=== PATIENT | female | born 1950 | race Caucasian/White ===

== ENCOUNTER 2020-04-30 17:32 | Emergency (ER) | payer OTHER ==
--- NOTE | 2020-04-30 17:37 | PDOC ---
Rapid Medical Evaluation Time Seen by Provider: 04/30/20 17:35 Medical Evaluation: 04/30/20 17:35 I have performed a brief in-person evaluation of this patient. CC: urinary retention. Had bladder scan performed prior to arrival ~700cc PE: mild distention to suprapubis. Orders: urine Patient will proceed to ED for further evaluation. 04/30/20 17:36 Discharge Disposition - Diagnosis Urinary retention - Referrals - Patient Instructions - Post Discharge Activity
[2020-04-30 17:53] VITALS: BP 157/91; PULSE 78; TEMP 98.2; BMI 26.6
[2020-04-30] MEDS ORDERED: SODIUM CHLORIDE 1,000 ML IV STA (19:00)
--- NOTE | 2020-04-30 19:13 | PDOC ---
History of Present Illness - General Chief Complaint: Urinary Problem Stated Complaint: URINARY PROBLEM Time Seen by Provider: 04/30/20 17:35 Past History - Medical History Allergies/Adverse Reactions: Allergies Allergy/AdvReac Type Severity Reaction Status Date / Time No Known Allergies Allergy Unverified 04/30/20 17:53 Home Medications: Ambulatory Orders Atorvastatin Ca [Lipitor] 40 mg PO HS 04/30/20 Bupropion HCl [Wellbutrin -] 100 mg PO DAILY 04/30/20 Escitalopram Oxalate [Lexapro -] 0 mg PO DAILY 04/30/20 Gabapentin 100 mg PO BID 04/30/20 Hydrochlorothiazide [Hctz -] 25 mg PO DAILY 04/30/20 Levothyroxine [Synthroid -] 25 mcg PO DAILY 04/30/20 Losartan Potassium [Cozaar -] 50 mg PO DAILY 04/30/20 - Psycho-Social/Smoking History Number of Cigarettes Smoked Daily: 5 - Substance Abuse Hx (Audit-C & DAST Scrn) Score: In Men: 4 or > Positive; In Women: 3 or > Positive: 0 Screen Result (Pos requires Nsg. Audit-10AR): Negative Score: Yes response is considered Positive: 0 Screen Result (Positive result requires Nsg. DAST-10): Negative ED Treatment Course - LABORATORY CBC & Chemistry Diagram: 04/30/20 19:24 04/30/20 19:24 Medical Decision Making - Medical Decision Making 69-year-old female with past medical history of shrugging syndrome presented to the emergency department for urinary retention since this morning. Patient stated that she has been having progressive urinary retention over the last couple of weeks, she was seen by her primary care doctor, who had ordered a bladder ultrasound today. She reported that she drink a lot of water in preparation for that ultrasound, and then afterwards was unable to urinate. She reported she had 700 mL of urine in her bladder. She denied fever, chills, nausea, vomiting, ROS General: denied fever, chills, generalized weakness. HEENT: denied sore throat, rhinorrhea, ear pain. Cardiovascular: denied chest pain, palpitations, syncope, diaphoresis. Respiratory: denied shortness of breath, cough, sputum production, hemoptysis. Gastrointestinal: admitted to abdominal pain, urinary retention. denied nausea, vomiting, diarrhea, constipation, blood in stool. Genitourinary: denied dysuria, increased urinary frequency, hematuria, urinary incontinence, flank pain. Back: denied back pain. Musculoskeletal: denied joint pain, muscle pain, joint swelling. Neurological: denied headache, dizziness, numbness, tingling, weakness. Integumentary: denied rash, laceration, abrasion. Hematologic/Lymphatic: denied bruising or bleeding. PE Constitutional: Well-nourished, Well-developed, appearing stated age. HEENT: head is normocephalic, atraumatic. EOMI. PERRLA. Neck: supple. Full ROM. Cardiovascular: regular heart rhythm. Normal S1 and S2. no murmurs. no pericardial friction rub. Respiratory: clear to auscultation bilaterally. no crackles, rhonchi or wheezing. no stridor. Gastrointestinal: soft, flat, distended. suprapubic tenderness. normal bowel sounds. no rebound, guarding, or masses. no CVA tenderness bilaterally. Extremities: peripheral pulses intact and equal. no lower extremity edema noted. Neurological: CN 2-12 grossly intact. moves all four extremities. Psych: awake, alert, oriented x3. follows commands. answers questions appropriately. Urinary retention likely 2/2 pharmacological side effect from many immunological drugs. Will give Urological follow up to rule out other sources. 04/30/20 20:17 CBC WBC 8.1 K/mm3 (4.0-10.0) 04/30/20 19:24 RBC 4.14 M/mm3 (3.60-5.2) 04/30/20 19:24 Hgb 13.1 GM/dL (10.7-15.3) 04/30/20 19:24 Hct 38.3 % (32.4-45.2) 04/30/20 19:24 MCV 92.5 fl (80-96) 04/30/20 19:24 MCH 31.7 pg (25.7-33.7) 04/30/20 19:24 MCHC 34.3 g/dl (32.0-36.0) 04/30/20 19:24 RDW 12.7 % (11.6-15.6) 04/30/20 19:24 Plt Count 290 K/MM3 (134-434) 04/30/20 19:24 MPV 7.4 fl (7.5-11.1) L 04/30/20 19:24 Absolute Neuts (auto) 4.7 K/mm3 (1.5-8.0) 04/30/20 19:24 Neutrophils % 58.2 % (42.8-82.8) 04/30/20 19:24 Lymphocytes % 32.7 % (8-40) 04/30/20 19:24 Monocytes % 5.9 % (3.8-10.2) 04/30/20 19:24 Eosinophils % 2.2 % (0-4.5) 04/30/20 19:24 Basophils % 1.0 % (0-2.0) 04/30/20 19:24 Nucleated RBC % 0 % (0-0) 04/30/20 19:24 CMP Sodium 142 mmol/L (136-145) 04/30/20 19:24 Potassium 4.3 mmol/L (3.5-5.1) 04/30/20 19:24 Chloride 106 mmol/L (98-107) 04/30/20 19:24 Carbon Dioxide 29 mmol/L (21-32) 04/30/20 19:24 Anion Gap 7 MMOL/L (8-16) L 04/30/20 19:24 BUN 15.5 mg/dL (7-18) 04/30/20 19:24 Creatinine 0.9 mg/dL (0.55-1.3) 04/30/20 19:24 Est GFR (CKD-EPI)AfAm 76.14 04/30/20 19:24 Est GFR (CKD-EPI)NonAf 65.70 04/30/20 19:24 Random Glucose 79 mg/dL (74-106) 04/30/20 19:24 Calcium 9.1 mg/dL (8.5-10.1) 04/30/20 19:24 Phosphorus 3.1 mg/dL (2.5-4.9) 04/30/20 19:24 Magnesium 2.1 mg/dL (1.8-2.4) 04/30/20 19:24 Total Bilirubin 0.3 mg/dL (0.2-1) 04/30/20 19:24 AST 23 U/L (15-37) 04/30/20 19:24 ALT 27 U/L (13-61) 04/30/20 19:24 Alkaline Phosphatase 93 U/L (45-117) 04/30/20 19:24 Total Protein 6.7 g/dl (6.4-8.2) 04/30/20 19:24 Albumin 3.6 g/dl (3.4-5.0) 04/30/20 19:24 Urine Test Results Urine Color Yellow 04/30/20 19:24 Urine Appearance Clear 04/30/20 19:24 Urine pH 6.0 (5.0-8.0) 04/30/20 19:24 Ur Specific [place] 1.009 (1.010-1.035) L 04/30/20 19:24 Urine Protein Negative (NEGATIVE) 04/30/20 19:24 Urine Glucose (UA) Negative (NEGATIVE) 04/30/20 19:24 Urine Ketones Negative (NEGATIVE) 04/30/20 19:24 Urine Blood Negative (NEGATIVE) 04/30/20 19:24 Urine Nitrite Negative (NEGATIVE) 04/30/20 19:24 Urine Bilirubin Negative (NEGATIVE) 04/30/20 19:24 Ur Leukocyte Esterase Negative (NEGATIVE) 04/30/20 19:24 No leukocytosis. No anemia. No NOLAN. No electrolyte abnormalities. No transaminitis. No UTI. No proteinuria. Pt stable for discharge. Will give urological follow up. 04/30/20 20:38 Dr. Li called back after DC, will see her this week. Message left on home voicemail. Discharge - Discharge Information Problems reviewed: Yes Clinical Impression/Diagnosis: Urinary retention, Status post insertion of Dorman catheter Condition: Improved Disposition: HOME - Admission No - Follow up/Referral Referrals: Alondra Gasca MD [Primary Care Provider] - Alejandro Burk MD [Staff Physician] - Dennis Roy MD [Staff Physician] - - Patient Discharge Instructions Patient Printed Discharge Instructions: How to Care for Your Dorman Catheter -- Female, DI for Urinary Retention in Women Additional Instructions: Follow up with a urologist promptly. Your care is not complete until you follow up. They will remove your dorman catheter. Drink water to keep hydrated. Take Tylenol over the counter for pain. Take as advised on label. Return to the ER for fever, chills, nausea, vomiting, chest pain, lightheadedness, shortness of breath, or any other new, worsening or concerning symptoms. - Post Discharge Activity Work/Back to School Note: Back to Work
--- NOTE | 2020-04-30 19:29 | PDOC ---
Attending Attestation - Resident Resident Name: Catina Schilling - ED Attending Attestation I have performed the following: I have examined & evaluated the patient, The case was reviewed & discussed with the resident, I agree w/resident's findings & plan - HPI HPI: 04/30/20 20:00 see resident hpi - Physicial Exam PE: 04/30/20 20:00 see resident exam - Medical Decision Making 04/30/20 20:00 69-year-old female with urinary retention sent from primary care 700 cc of urine on bladder scan Fernandez placed with immediate release of clear urine in the emergency department, now totaling 1300 cc Plan for basic labs and DC with prompt urological follow-up Discharge - Discharge Information Problems reviewed: Yes Clinical Impression/Diagnosis: Urinary retention - Follow up/Referral Referrals: Alondra Gasca MD [Primary Care Provider] - - Patient Discharge Instructions - Post Discharge Activity
[2020-04-30 19:37] LABS: EOS % 2.2 % (0-4.5); HEMATOCRIT 38.3 % (32.4-45.2); HEMOGLOBIN 13.1 GM/dL (10.7-15.3); LYMPH % 32.7 % (8-40); MCH 31.7 pg (25.7-33.7); MCHC 34.3 g/dl (32.0-36.0); MEAN CELL VOLUME 92.5 fl (80-96); MEAN PLT VOLUME 7.4 fl (7.5-11.1); MONO % 5.9 % (3.8-10.2); NEUT % 58.2 % (42.8-82.8); PLATELET COUNT 290 K/MM3 (134-434); RBC 4.14 M/mm3 (3.60-5.2); RDW 12.7 % (11.6-15.6); WHITE BLOOD COUNT 8.1 K/mm3 (4.0-10.0)
[2020-04-30 19:40] LABS: URINE APPEARANCE CLEAR; URINE BILIRUBIN NEGATIVE (NEGATIVE); URINE COLOR YELLOW; URINE GLUCOSE (UA) NEGATIVE (NEGATIVE); URINE KETONE NEGATIVE (NEGATIVE); URINE LEUK ESTERASE NEGATIVE (NEGATIVE); URINE NITRITE NEGATIVE (NEGATIVE); URINE PROTEIN NEGATIVE (NEGATIVE); URINE UROBILINOGEN 0.2 mg/dL (0.2-1.0)
[2020-04-30 20:14] LABS: ALBUMIN 3.6 g/dl (3.4-5.0); BILIRUBIN,TOTAL 0.3 mg/dL (0.2-1); BLOOD UREA NITROGEN 15.5 mg/dL (7-18); CALCIUM 9.1 mg/dL (8.5-10.1); CREATININE 0.9 mg/dL (0.55-1.3); MAGNESIUM 2.1 mg/dL (1.8-2.4); PHOSPHOROUS 3.1 mg/dL (2.5-4.9); POTASSIUM 4.3 mmol/L (3.5-5.1); TOT PROT 6.7 g/dl (6.4-8.2)
== END 2020-04-30 21:16 | disposition home or self-care (01) ==
LOC: JER 17:32
PROC: 3E0337Z Introduction of Electrolytic and Water Balance Substance into Peripheral Vein, Percutaneous Approach (ICD-10-PCS; principal; 2020-04-30)
DX: R33.9 Retention of urine, unspecified (principal)
CPT/HCPCS: 36415; 80053; 81003; 83735; 84100; 85025; 87086; 99284-25

== ENCOUNTER 2024-03-23 06:04 | Emergency (ER) | payer OTHER ==
[2024-03-23 06:11] VITALS: BP 119/74; RESP 20; BMI 26.5
[2024-03-23] MEDS ORDERED: HEPARIN NA (PORCINE) 5,000 UNITS/ML 1ML VIAL ONE (06:22)
[2024-03-23] MEDS ORDERED: HEPARIN INFUSION - 25,000 UNITS/500 ML INFUS.BAG IVPB ONE (06:22)
[2024-03-23] MEDS ORDERED: CLOPIDOGREL BISULFATE 300 MG TABLET ONE (06:30)
[2024-03-23] MEDS ORDERED: ASPIRIN COATED 81 MG TABLET.EC ONE (06:30)
[2024-03-23] MEDS ORDERED: HEPARIN INFUSION - 500 ML IVPB SCH (06:30)
[2024-03-23] MEDS ORDERED: MORPHINE SULFATE 2 MG/ML SYRINGE ONE ×2 (06:33→07:11)
[2024-03-23] MEDS: HEPARIN NA (PORCINE) 5,000 UNITS/ML 1ML VIAL IVPUSH ONE (06:33)
[2024-03-23] MEDS: CLOPIDOGREL BISULFATE 300 MG TABLET PO ONE (06:33)
[2024-03-23] MEDS: ASPIRIN 81 MG CHEWABLE TABLETS PO ONE (06:33)
[2024-03-23] MEDS: morphine CARPU-JECT 2 MG/1 ML DISP.SYRIN IVPUSH ONE ×2 (06:38→07:19)
[2024-03-23 06:42] VITALS: TEMP 97.8
[2024-03-23] MEDS ORDERED: HEPARIN NA (PORCINE) 5,000 UNITS/ML 1ML VIAL IVPUSH PRN (06:42)
[2024-03-23] MEDS: HEPARIN - 25,000 UNIT in SODIUM CHLORIDE 495 ML IV SCH (06:43)
[2024-03-23 06:44] VITALS: PULSE 68
[2024-03-23] MEDS: HEPARIN INFUSION - 25,000 UNITS/500 ML INFUS.BAG IVPB SCH (06:55)
[2024-03-23 08:12] LABS: BASO % 0.9 % (0-2.0); EOS % 4.4 % (0-4.5); HEMATOCRIT 37.6 % (32.4-45.2); HEMOGLOBIN 12.9 GM/dL (10.7-15.3); LYMPH % 32.3 % (8-40); MCHC 34.3 g/dl (32.0-36.0); MEAN CELL VOLUME 96.3 fl (80-96); MONO % 7.6 % (3.8-10.2); NEUT % 54.8 % (42.8-82.8); PLATELET COUNT 317 10^3/uL (134-434); RBC 3.91 M/mm3 (3.60-5.2); RDW 13.5 % (11.6-15.6); WHITE BLOOD COUNT 7.4 K/mm3 (4.0-10.0)
[2024-03-23 08:24] LABS: POTASSIUM 3.7 mmol/L (3.5-5.1)
[2024-03-23 08:26] LABS: CALCIUM 9.2 mg/dL (8.5-10.1)
[2024-03-23 08:27] LABS: ALBUMIN 3.6 g/dl (3.4-5.0); BLOOD UREA NITROGEN 16.6 mg/dL (7-18); MAGNESIUM 2.1 mg/dL (1.8-2.4)
[2024-03-23 08:30] LABS: CREATININE 0.8 mg/dL (0.55-1.3)
[2024-03-23 08:31] LABS: BILIRUBIN,TOTAL 0.7 mg/dL (0.2-1); TOT PROT 6.5 g/dl (6.4-8.2)
== END 2024-03-23 07:19 | disposition short-term general hospital (02) ==
LOC: JER 06:04
PROC: 3E033GC Introduction of Other Therapeutic Substance into Peripheral Vein, Percutaneous Approach (ICD-10-PCS; principal; 2024-03-23)
PROC: 3E033NZ Introduction of Analgesics, Hypnotics, Sedatives into Peripheral Vein, Percutaneous Approach (ICD-10-PCS; 2024-03-23)
PROC: 3E033NZ Introduction of Analgesics, Hypnotics, Sedatives into Peripheral Vein, Percutaneous Approach (ICD-10-PCS; 2024-03-23)
DX: I21.3 ST elevation (STEMI) myocardial infarction of unspecified site (principal); I10 Essential (primary) hypertension; F17.210 Nicotine dependence, cigarettes, uncomplicated; R11.2 Nausea with vomiting, unspecified; R06.02 Shortness of breath; Z20.822 Contact with and (suspected) exposure to COVID-19
CPT/HCPCS: 0241U-QW; 36415; 71045-TC-FY; 80053; 83735; 84484; 85025; 85730; 93005; 93010; 99285-25; J1644